=== PATIENT | male | born 1950 | race Caucasian/White ===

== ENCOUNTER 2018-01-29 07:56 | Outpatient (CLI) | payer OTHER ==
[~2018-01-29 07:56] MED LIST: AMBIEN5 MG; BISOPROLOL FUMAR5 MG; DOLOGEN CAPLET1 TAB; GLIMEPIRIDE4 MG; HYZAAR 100-121 UDTAB; JANUMET XR 50-1 EACH; METFORMIN HCL1000 MG; NORVASC5 MG; SIMVASTATIN40 MG; TAMS0.4C; TRAMADOL HCL-AP1 TAB
== END 2018-01-29 08:17 | disposition home or self-care (01) ==
LOC: LAB 07:56 → RAD 07:56 → LAB 08:17
DX: R33.8 Other retention of urine (principal); D51.0 Vitamin B12 deficiency anemia due to intrinsic factor deficiency; E11.9 Type 2 diabetes mellitus without complications; E78.89 Other lipoprotein metabolism disorders; I10 Essential (primary) hypertension; I25.10 Atherosclerotic heart disease of native coronary artery without angina pectoris; Z01.818 Encounter for other preprocedural examination; Z01.89 Encounter for other specified special examinations

== ENCOUNTER 2018-05-10 08:30 | Outpatient (CLI) | payer OTHER | END 2018-05-10 08:38 | disposition home or self-care (01) | LOC: LAB 08:30 | DX: E78.2 Mixed hyperlipidemia (principal); I11.9 Hypertensive heart disease without heart failure; D63.8 Anemia in other chronic diseases classified elsewhere; D50.8 Other iron deficiency anemias; N39.0 Urinary tract infection, site not specified; E11.42 Type 2 diabetes mellitus with diabetic polyneuropathy; K76.0 Fatty (change of) liver, not elsewhere classified; E03.8 Other specified hypothyroidism; E55.9 Vitamin D deficiency, unspecified ==